=== PATIENT | female | born 1965 | race Caucasian/White ===

== ENCOUNTER → 2020-03-01 08:03 | Outpatient (CLI) | payer BC, SELFPAY ==
--- NOTE | 2020-03-01 | DI.ECHO.S_ITS ---
[place] [facility]---------+ [facility] +---------+ : : [address] : : : : [address] : : : : [id number] : : : : Phone: [phone]---------+ Echocardiogram Report + + :Name: ADRIANA LÓPEZ Study Date: 03/01/2020 Height: 68 in : :[facility] Weight: 295 lb : : Gender: Female BSA: 2.4 m2 : :: 1965 Age: 54 yrs BP: 138/76 mmHg: :Reason For Study: HYPERTENSION : :Ordering Physician: ROVERTO, : :DAWSON Performed By: Stacey De La Cruz : :Referring: DAWSON LAYNE : + + Interpretation Summary Technically difficult study. Borderline dilated left ventricle with ejection fraction 55-60%. Mildly dilated left atrium. Moderate aortic stenosis. The peak aortic velocity is 3.0. m/sec. Mildly enlarged ascending aorta. Mild mitral regurgitation. Mild tricuspid regurgitation. Procedure: A two-dimensional transthoracic echocardiogram with color flow and Doppler was performed. The patient had an echocardiogram, but there is no comparison study available. The study quality was technically difficult. The patient was in sinus rhythm with heart rates between 61-70 bpm during the exam. Left Ventricle: There is normal left ventricular wall thickness. The left ventricle is borderline dilated. The ejection fraction is estimated to be 55- 60%. There are no obvious focal wall motion abnormalities noted but poor endocardial definition reduces the sensitivity for the detection of such. Diastolic parameters suggest probable normal left ventricular diastolic function and normal filling pressures. Right Ventricle: The right ventricle is normal in size and function. Atria: The left atrium is mildly dilated. Right atrial size is normal. There is no Doppler evidence for an interatrial shunt. Mitral Valve: The mitral valve leaflets appear mildly thickened, but open well. There is mild mitral regurgitation. Aortic Valve: The aortic valve is mildly calcified. There is moderate aortic stenosis. The peak aortic velocity is 3.0. m/sec. The aortic valve mean gradient is 21 mmHg. The calculated aortic valve area is 1.0 cm2. No aortic regurgitation is present. Tricuspid Valve: The tricuspid valve leaflets are thin and pliable. There is mild tricuspid regurgitation. Pulmonary artery pressures cannot be estimated because of the lack of a measurable TR jet velocity but the IVC suggests a CVP of around 3 mmHg. Pulmonic Valve: The pulmonic valve leaflets are thin and pliable; valve motion is normal. There is no pulmonic valvular regurgitation. Great Vessels: The aortic root is normal size. The ascending aorta is mildly enlarged. The IVC is of normal diameter and collapses greater than 50% with a sniff. This suggests a low right atrial pressure of 3 mm Hg. Pericardium/ Pleura There is no pericardial effusion. There is no pleural effusion. MMode/2D Measurements & Calculations LVIDd: 5.9 cm LVOT diam: 2.0 cm LVIDs: 3.9 cm Ao root diam: 2.8 cm FS: 34.4 % asc Aorta Diam: 3.4 cm EPSS: 1.3 cm Ao Arch Diam (Prox Trans): 2.2 cm IVSd: 0.87 cm LVPWd: 0.97 cm LV galvin. diameter/BSA (cm/m^2): 2.5 LV sys. diameter/BSA (cm/m^2): 1.6 LA A2 area: 23.6 cm2 RA long axis: 5.5 cm LA A4 area: 27.1 cm2 RA area: 20.8 cm2 LA length (vol): 5.8 cm RA vol: 66.9 ml LA vol: 94.0 ml RA : 27.7 ml/m2 LA vol index: 39.0 ml/m2 IVC diam: 2.0 cm RVD1 (basal): 3.9 cm TAPSE: 2.1 cm Doppler Measurements & Calculations Ao V2 max: 297.5 cm/sec LVOT Max Bar: 97.0 cm/sec Ao V2 mean: 215.8 cm/sec LV V1 max P.8 mmHg Ao max P.4 mmHg LV V1 VTI: 23.7 cm Ao mean P.8 mmHg ZIYAD(I,D): 1.0 cm2 Ao V2 VTI: 70.9 cm ZIYAD(V,D): 1.0 cm2 sev ratio: 0.33 ZIYAD indexed to BSA (cm^2/m^2): 0.43 MV E max bar: 113.1 cm/sec PA V2 max: 77.9 cm/sec MV A max bar: 74.1 cm/sec PA V2 mean: 52.3 cm/sec MV E/A: 1.5 PA mean P.3 mmHg Med Peak E' Bar: 6.9 cm/sec PA pr(Accel): 44.7 mmHg E/E' med: 16.5 Lat Peak E' Bar: 10.0 cm/sec E/E' lat: 11.4 E/e' average: 13.9 MV dec time: 0.20 sec MVA(VTI): 2.1 cm2 MV V2 mean: 69.5 cm/sec SV(LVOT): 72.8 ml MV mean P.3 mmHg MV V2 VTI: 34.4 cm Electronically signed by: Roberto Carlos Linares on Reading Physician:03/01/2020 11:14 AM
== END ==
PROVIDERS: Family Provider Family Medicine; PCP Family Medicine; Referring Provider Family Medicine; Visit Provider Family Medicine
DX: I08.3 Combined rheumatic disorders of mitral, aortic and tricuspid valves (principal); I77.89 Other specified disorders of arteries and arterioles; I10 Essential (primary) hypertension
CPT/HCPCS: 93306

== ENCOUNTER → 2021-03-10 09:17 | Outpatient (CLI) | payer BC, SELFPAY ==
--- NOTE | 2021-03-10 09:19 | DI.ECHO.S_ITS ---
[place] [facility]---------+ [facility] +---------+ : : [address] : : : : [address] [address] : : : : [id number] : : : : Phone: [phone]---------+ Echocardiogram Report + + :Name: ADRIANA LÓPEZ Study Date: 03/10/2021 Height: 68.5 in: :[facility] ReadingLocation: Weight: 295 lb : : Gender: Female BSA: 2.4 m2 : :: 1965 Age: 55 yrs BP: 150/68 mmHg: :Reason For Study: AORTIC STENOSIS : :Ordering Physician: ROVERTO, : :DAWSON Performed By: Stacey De La Cruz : :Referring: DAWSON LAYNE : + + Interpretation Summary The left ventricle is borderline dilated. Left ventricular systolic function appears normal without focal wall motion abnormalities. The ejection fraction is estimated to be 55-60%. The right ventricle is normal in size and function. Pulmonary artery pressures cannot be estimated because of the lack of a measurable TR jet velocity. The left atrium is mildly dilated. Right atrial size is normal. There is moderate aortic stenosis. The peak aortic velocity is 3.1 m/sec. No significant change since prior study. There is no other significant valvular heart disease. The aortic root is not well visualized but is probably normal size. Procedure: A two-dimensional transthoracic echocardiogram with color flow and Doppler was performed. Comparison is made with the echocardiogram of 03/01/2020. The study quality was technically difficult. A contrast injection of Definity was performed to improve assessment of LV function. The patient was in sinus bradycardia with heart rates between 60-65 bpm during the exam. Left Ventricle: The left ventricle is borderline dilated. There is normal left ventricular wall thickness. Left ventricular systolic function appears normal without focal wall motion abnormalities. The ejection fraction is estimated to be 55-60%. Diastolic function could not be accurately assessed due to contradictory data. Right Ventricle: The right ventricle is normal in size and function. Atria: The left atrium is mildly dilated. Right atrial size is normal. There is no Doppler evidence for an interatrial shunt. Mitral Valve: The mitral valve leaflets appear mildly thickened, but open well. There is trace mitral regurgitation. Aortic Valve: The aortic valve is moderately calcified. There is moderately reduced leaflet mobility. There is moderate aortic stenosis. The peak aortic velocity is 3.1 m/sec. The aortic valve mean gradient is 22 mmHg. No aortic regurgitation is present. Tricuspid Valve: The tricuspid valve is not well visualized, but is grossly normal. No tricuspid regurgitation. Pulmonary artery pressures cannot be estimated because of the lack of a measurable TR jet velocity. Pulmonic Valve: The pulmonic valve is not well visualized. There is no pulmonic valvular regurgitation. There is no other significant valvular heart disease. Great Vessels: The aortic root is not well visualized but is probably normal size. The dimensions of the ascending aorta are normal. The IVC is of normal diameter and collapses greater than 50% with a sniff. This suggests a low right atrial pressure of 3 mm Hg. Pericardium/ Pleura There is no pericardial effusion. There is no pleural effusion. MMode/2D Measurements & Calculations LVIDd: 6.0 cm LVOT diam: 2.0 cm LVIDs: 3.9 cm asc Aorta Diam: 3.2 cm FS: 34.1 % Ao Arch Diam (Prox Trans): 2.6 cm IVSd: 0.89 cm LVPWd: 0.91 cm LV galvin. diameter/BSA (cm/m^2): 2.5 LV sys. diameter/BSA (cm/m^2): 1.6 LA A2 area: 27.6 cm2 RA long axis: 4.7 cm LA A4 area: 21.0 cm2 RA area: 15.7 cm2 LA length (vol): 5.9 cm RA vol: 44.5 ml LA vol: 83.2 ml RA : 18.4 ml/m2 LA vol index: 34.3 ml/m2 IVC diam: 2.0 cm RVD1 (basal): 3.9 cm TAPSE: 2.3 cm Doppler Measurements & Calculations Ao V2 max: 311.3 cm/sec LVOT Max Bar: 124.4 cm/sec Ao V2 mean: 217.9 cm/sec LV V1 max P.2 mmHg Ao max P.5 mmHg LV V1 VTI: 29.1 cm Ao mean P.0 mmHg ZIYAD(I,D): 1.2 cm2 Ao V2 VTI: 73.6 cm ZIYAD(V,D): 1.2 cm2 sev ratio: 0.40 ZIYAD indexed to BSA (cm^2/m^2): 0.51 MV E max bar: 113.9 cm/sec PA V2 max: 120.7 cm/sec MV A max bar: 94.1 cm/sec PA V2 mean: 84.3 cm/sec MV E/A: 1.2 PA mean P.2 mmHg Med Peak E' Bar: 5.6 cm/sec PA pr(Accel): 32.8 mmHg E/E' med: 20.3 Lat Peak E' Bar: 10.8 cm/sec E/E' lat: 10.6 E/e' average: 15.5 MV dec time: 0.21 sec SV(LVOT): 90.9 ml Reading Physician:06:18 PM
== END ==
PROVIDERS: Family Provider Family Medicine; PCP Family Medicine; Referring Provider Family Medicine; Visit Provider Family Medicine
DX: I35.0 Nonrheumatic aortic (valve) stenosis (principal)
CPT/HCPCS: 93306; Q9957

== ENCOUNTER → 2021-08-10 11:00 | Outpatient (CLI) | payer BC, SELFPAY ==
--- NOTE | 2021-08-10 11:02 | DIET.CONS ---
Dietary Consultation Note Assessment: 56y menopausal F attending telehealth visit for help with preDM, HLD, morbid obesity. Video visit transitioned into phone consult due to connection issues. A1c 6.2- pt states lower than it has been, pts mother was DM2 from mid-50s, not sibling or father. lives with friend (Natacha) who is DM2 and does the cooking, they get out and hike but not losing weight. Pt friend dx since Feb 2021, both have been working on healthy habits since then, pt somewhat disappointed she has not lost weight. Ht: 5'9 Wt: 295# BMI: 43.6 Usual Day: Works M-F wakes 6am has 7 cats, feeds them and does litter box B: 7:30am- 1/3 dry oats c 1/2 c cottage cheese and fruit (3/4c frozen berries) unsweet serbian yogurt c Truvia and milk c 3/4 c frozen fruit c handful walnuts/pecan/pumpkin seeds Likes flavored water and Crystal Light Drinks home made coffee c SF creamer and iced sometimes friend at work brings in baked goods but usually no snack before lunch L: green salad c salmon, meat, veggies, regular ranch, feta cheese or half egg salad c chips, thin bread toast c apple and nuts afternoon snack: crackers and cheese to nuts, apples c cheese, rice cakes c nut butter D (630pm): baked meat (steak of fridays only but usually chicken, pork) and salads c vegetables, sometimes potato but not usually other carbs. decaf coffee c whip cream and creamer sleeping in bed 9:30pm often goes for hike or beach stroll on Saturdays doesn't go out to eat much barrier to good nutrition and activity is sitting at a desk Nutrition Diagnosis: altered nutrition related laboratory values (A1c, BMI, TC) r/t undesirable food choices and physical inactivity aeb A1c 6.2, BMI 43.6, TC 202, pt reports some cardiovascular activity through the week but no intentional strength training, inadequate intake dietary fiber and protein. Interventions: 1. To support weight loss and healthy metabolism, recc pt participate in strength training 20 min twice weekly, rec isela. 2. To support weight loss, healthy cholesterol levels, and BG balance, recc 25-30g fiber daily. Pt will track her diet for 3 days to estimate fiber intake and increase to goal. 3. To support weight loss, satiety, pt will aim for 100g protein daily. Pt will track protein 3 days and work on reaching goal. EER: 100g PRO, 30g Fiber Monitoring/Evaluations: telehealth f/u 4w Electronically Signed by: Katherine Hendricks 08/10/21 11:02 Clinical Dietitian [address] [address]
== END ==
PROVIDERS: Family Provider Family Medicine; PCP Family Medicine; Referring Provider Family Medicine; Visit Provider Family Medicine
DX: R73.03 Prediabetes (principal); E78.5 Hyperlipidemia, unspecified; E66.01 Morbid (severe) obesity due to excess calories; Z68.41 Body mass index [BMI] 40.0-44.9, adult; Z71.3 Dietary counseling and surveillance; Z78.0 Asymptomatic menopausal state
CPT/HCPCS: 97802

== ENCOUNTER → 2021-09-07 11:59 | Outpatient (CLI) | payer BC, SELFPAY ==
--- NOTE | 2021-09-07 11:07 | DIET.PN1 ---
Dietary Progress Note 56y F attending RD f/u via virtual video call for help with weight management and preDM. Pt in work office, RD in hospital office, pt agrees to virtual visit platform. Pt feels changes are going well so far. She has not lost weight yet but is tracking her foods on [employer] and is noticing her diet is low in protein and high in carbs. Pt has 45g in oatmeal higher carb meal and noticed her rice cakes were basically empty calories and high carb. Pt is reducing the rice cakes, willing to try veggie crisps with more fiber. Pt finds planning ahead with meal planning makes her more successful. She has been purchasing precut veggies and throwing them in work bag c [place]. Pt having trouble adding physical activity during the workweek. She has long days and can't seem to carve out time before or after work. Discussed bringing hand weights or band to work for 10min workout using [place] calendar as reminder. Pt has desk bike at home, never thought to bring to work. Will bring tomorrow and start pedaling 10 minutes per day with goal of working up from there. Discussed importance of 10min chunks of exercise for preDM. Pt getting bored c salads, asking about frozen veggies as she does not like canned. Provided Mediterranean meal plan template with meal and snack ideas within carb limits appropriate for pt and roomate to shake planning up a bit. Pt will work on these modifications and virtual f/u scheduled out 4w. Electronically Signed by: Katherine Hendricks 09/07/21 11:07 Clinical Dietitian [address] [address]
== END ==
PROVIDERS: Family Provider Family Medicine; PCP Family Medicine; Referring Provider Family Medicine; Visit Provider Family Medicine
DX: R73.03 Prediabetes (principal); Z71.3 Dietary counseling and surveillance
CPT/HCPCS: 97803

== ENCOUNTER → 2021-10-05 11:38 | Outpatient (CLI) | payer BC, SELFPAY ==
--- NOTE | 2021-10-05 11:39 | DIET.OUTPTC ---
Dietary Outpatient Consultation Note Consultation Date: 10/05/2021 Pt in work office, RD in hospital office, pt agrees to telehealth visit using [email or web address] application. Pt reports she has lost 3# in the past month. Starting to track food in food tracking concetta and surprised how many calories she eats in snacks especially peanut butter. B: yogurt c nuts, oatmeal c fruit and cottage cheese, carrera and eggs occasionally L: salad c veggies and meat, sometimes canned tuna D: if eating a pot pie- watches carbs and calories rest of day, usually protein and veggies Has sweet tooth- cookies, doughnuts Loves fresh fruits Pt feeling tired at work Wearing fitbit: workday averages: [id number] steps with walk 10k steps no walk. Interventions: 1. 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 Discussed stevia sweetened chocolate chips and strategies for making limited low sugar and high fiber treats to keep in deep freeze (stevia, monkfruit, blended oats, energy bites). Strategies to limit treats at work in breakroom. 2. Discussed pts current dietary habits supporting stable energy levels. Recc pt get up and walk around each hour to break up sedentary time, have labs done to check for anemia at next PCP visit, and make appt c her sleep doc for check in. f/u scheduled in 4w to continue progress and problem solve barriers. Electronically Signed by: Katherine Hendricks 10/05/21 11:39 Clinical Dietitian [address] [address]
== END ==
PROVIDERS: Family Provider Family Medicine; PCP Family Medicine; Referring Provider Family Medicine; Visit Provider Family Medicine
DX: Z71.3 Dietary counseling and surveillance (principal)
CPT/HCPCS: 97803

== ENCOUNTER → 2021-11-23 13:33 | Outpatient (CLI) | payer OTHER, SELFPAY ==
--- NOTE | 2021-11-23 13:35 | DIET.OUTPTC ---
Dietary Outpatient Consultation Note Consultation Date: 11/23/2021 Pt in work office, RD in hospital office, pt agrees to telehealth visit using [employer] application. Pt attending telehealth f/u for help with preDM, HLD, and morbid obesity (BMI 42). Pt weight steady, fluctuates 4-5# at a time but same weight x5y. Pt a bit frustrated she has not lost weight but also feels she has made great improvements to overall eating composition and timing. Pt noticing when she does not pack lunch, she overeats snacks which may be derailing her weight loss. [place] kcal goal [place] [id number] depending on exercise. Pt will follow 1600 on work days and 2200 on weekends when she does the most of her physical activity. Pt will increase physical activity to spur change from her currrent weight set point. f/u in 5w to continue monitoring progress and providing supportive care. Electronically Signed by: Katherine Hendricks 11/23/21 13:35 Clinical Dietitian [address] [address]
[2021-11-23 13:50] VITALS: BMI 43.5
== END ==
PROVIDERS: Family Provider Family Medicine; PCP Family Medicine; Referring Provider Family Medicine; Visit Provider Family Medicine
DX: E66.01 Morbid (severe) obesity due to excess calories (principal); E78.5 Hyperlipidemia, unspecified; R73.03 Prediabetes
CPT/HCPCS: 97803

== ENCOUNTER → 2022-02-23 15:57 | Outpatient (CLI) | payer OTHER, SELFPAY ==
--- NOTE | 2022-02-23 16:05 | DI.ECHO.S_ITS ---
[place] [facility]---------+ Hospital +---------+ : : [address] : [address] : [address] : : : : [phone] : : : : Phone: [phone] +---------+ Echocardiogram Report + + :Name: ADRIANA LÓPEZ Study Date: 02/23/2022 Height: 68 in : :[facility] ReadingLocation: Weight: 295 lb : : Gender: Female BSA: 2.4 m2 : :: 1965 Age: 56 yrs BP: 134/81 mmHg: :Reason For Study: Aortic valve stenosis : :Ordering Physician: ROVERTO, : :DAWSON Performed By: Linden Hi : :Referring: DAWSON LAYNE : + + Interpretation Summary The ejection fraction is estimated to be 60-65%. The right ventricle is normal in size and function. Pulmonary artery pressures cannot be estimated because of the lack of a measurable TR jet velocity. There is moderate aortic stenosis. No significant change from prior study in 02/2021 Procedure: A two-dimensional transthoracic echocardiogram with color flow and Doppler was performed. The study quality was technically difficult. Comparison is made with the echocardiogram of 03/10/2021. Left Ventricle: The left ventricle is normal in size and wall thickness. Left ventricular systolic function is normal. The ejection fraction is estimated to be 60-65%. There are no focal wall motion abnormalities. Grade I diastolic dysfunction. Right Ventricle: The right ventricle is normal in size and function. Atria: Both atria are normal in size. The interatrial septum grossly appears intact with no obvious evidence for an atrial septal defect. Mitral Valve: The mitral valve is normal in structure and function. There is no mitral regurgitation noted. Aortic Valve: The aortic valve is moderately calcified. There is moderate aortic stenosis. The aortic valve mean gradient is 23 mmHg. No aortic regurgitation is present. Tricuspid Valve: The tricuspid valve is normal in structure and function. There is a trace or physiologic amount of tricuspid regurgitation. Pulmonary artery pressures cannot be estimated because of the lack of a measurable TR jet velocity. Pulmonic Valve: The pulmonic valve is normal in structure and function. There is no pulmonic valvular regurgitation. Great Vessels: The aortic root is normal size. The dimensions of the ascending aorta are normal. The IVC is of normal diameter and collapses greater than 50% with a sniff. This suggests a low right atrial pressure of 3 mm Hg. Pericardium/ Pleura There is no pericardial effusion. There is no pleural effusion. MMode/2D Measurements & Calculations LVIDd: 5.4 cm LVOT diam: 2.1 cm LVIDs: 3.8 cm Ao root diam: 2.8 cm FS: 29.6 % asc Aorta Diam: 3.1 cm IVSd: 1.1 cm LVPWd: 1.1 cm LV galvin. diameter/BSA (cm/m^2): 2.2 LV sys. diameter/BSA (cm/m^2): 1.6 LA dimension: 3.4 cm RA long axis: 4.8 cm LA A2 area: 19.6 cm2 RA area: 13.7 cm2 LA A4 area: 20.5 cm2 RA vol: 33.3 ml LA length (vol): 5.0 cm RA : 13.8 ml/m2 LA vol: 68.1 ml LA vol index: 28.3 ml/m2 RVD1 (basal): 3.3 cm TAPSE_phl: 3.0 cm Doppler Measurements & Calculations Ao V2 max: 316.0 cm/sec LVOT Max Bar: 129.0 cm/sec Ao V2 mean: 230.9 cm/sec LV V1 max P.7 mmHg Ao max P.9 mmHg LV V1 VTI: 29.1 cm Ao mean P.2 mmHg ZIYAD(I,D): 1.4 cm2 Ao V2 VTI: 72.0 cm ZIYAD(V,D): 1.4 cm2 sev ratio: 0.40 ZIYAD indexed to BSA (cm^2/m^2): 0.58 MV E max bar: 127.0 cm/sec SV(LVOT): 100.6 ml MV A max bar: 78.4 cm/sec MV E/A: 1.6 Med Peak E' Bar: 5.7 cm/sec E/E' med: 22.2 Lat Peak E' Bar: 12.4 cm/sec E/E' lat: 10.2 E/e' average: 16.2 MV dec time: 0.24 sec AV VR_phl: 0.42 MV P1/2t-pr_phl: 71.0 msec ZIYADLENORE)/BSA_phl: 0.59 Reading Physician:RA
== END ==
PROVIDERS: Family Provider Family Medicine; PCP Family Medicine; Referring Provider Family Medicine; Visit Provider Family Medicine
DX: I51.7 Cardiomegaly (principal); I35.0 Nonrheumatic aortic (valve) stenosis
CPT/HCPCS: 93306

== ENCOUNTER → 2022-03-21 09:24 | Outpatient (CLI) | payer OTHER, SELFPAY ==
[2022-03-21 11:24] LABS: COVID19 -Nasal RAPID Negative (Negative)
== END ==
PROVIDERS: Family Provider Family Medicine; PCP Family Medicine; Visit Provider Surgery
DX: Z01.812 Encounter for preprocedural laboratory examination (principal); Z20.822 Contact with and (suspected) exposure to COVID-19
CPT/HCPCS: 87635; C9803

== ENCOUNTER 2022-03-22 08:58 | Day surgery (SDC) | payer OTHER, SELFPAY ==
[2022-03-22 09:11] VITALS: BP 149/79; PULSE 65; RESP 15; TEMP 36.4; O2SAT 96; BMI 44.8
--- NOTE | 2022-03-22 09:21 | PM.HP.1 ---
History of Present Illness History of Present Illness Date Patient Seen: 03/22/22 Chief complaint: Colonoscopy Narrative: History of colon polyps Meds Home Medications and Allergies Home Medications Medication Instructions Recorded Confirmed Type ASPIRIN (Aspirin Low Dose) 81 mg PO QDAY ##0 07/21/09 History CHOLECALCIFEROL (VITAMIN D3) 1,000 iu PO QDAY ##0 07/21/09 History (Vitamin D3) Ferrous Sulfate (Feosol) 50 mg PO QDAY ##0 07/21/09 History IBUPROFEN (Motrin / Advil) PRN ##0 07/21/09 History Metoprolol Tartrate (Lopressor) 50 mg PO HS ##0 07/21/09 History [CALCIUM/MAG] 250 mg PO BID ##0 07/21/09 History [EVENING PRIMROSE] 500 mg PO BID ##0 07/21/09 History [FLAXSEED OIL] PO TID ##0 07/21/09 History [FLUTACASONE] 2 spray intranasal QDAY ##0 07/21/09 History [GLUCOSAMINE SULF] 750 mg PO BID ##0 07/21/09 History [METHIMAZOLE] 15 mg PO BID ##0 07/21/09 History acetaminophen 325 mg tablet PRN ##0 07/21/09 History Allergies Allergy/AdvReac Type Severity Reaction Status Date / Time amoxicillin [AMOXICILLIN] AdvReac Unknown DIARRHEA Unverified 08/01/17 11:53 INGREDIENT: NKA - NO KNOWN Allergy Unknown Uncoded 08/01/17 11:53 ALLERGIES Exam Narrative Exam Narrative: Oropharynx free of lesions Chest clear to auscultation percussion Cardiac exam reveals no S3 or murmur Assessment & Plan Assessment & Plan narrative: History of colon polyps need for follow-up colonoscopy. Risks, benefits, alternatives have been explained. Time Spent With Patient Critical Care time: I spent a total of [] minutes of critical care time on this patient's care today; this time is exclusive of procedural time.
--- NOTE | 2022-03-22 09:22 | PM.OP.COLON ---
Operative Date/Time/Diagnoses Date of procedure: 03/22/22 Pre-op diagnosis: See indication and findings Procedure & Clinicians Study performed: Colonoscopy Indications: History of colon polyps Surgeon: Jovan El Procedure Notes Procedure in detail: After informed consent was obtained the patient was placed in left lateral decubitus position. The video colonoscope was introduced to the rectum slowly advanced cecum. On slow withdrawal mucosa was carefully examined. Preparation was was poor with non-transparent liquid stool and some solid stool present. The scope was removed. The patient tolerated procedure well. Blood loss none Complications none Sedation mac Findings 1. Poor colonoscopy prep with solid and liquid components. Procedure aborted Patient will need to have a extra dose or 2 day prep prior to her next colonoscopy attempt
[2022-03-22] MEDS: SODIUM CHLORIDE 0.9% 1,000 ML 84 ML IV (09:27)
[2022-03-22 09:48] VITALS: BP 98/52; PULSE 63; RESP 12; TEMP 36.6; O2SAT 92
[2022-03-22 09:52] VITALS: BP 98/57; PULSE 62; RESP 11; O2SAT 94
[2022-03-22 09:58] VITALS: BP 126/76; PULSE 66; RESP 15; O2SAT 98
[2022-03-22 10:02] VITALS: BP 124/74; PULSE 65; RESP 15; TEMP 36.6; O2SAT 98
[2022-03-22 10:15] VITALS: BP 117/71; PULSE 63; RESP 16; TEMP 36.1; O2SAT 95
== END 2022-03-22 10:16 | disposition home or self-care (01) ==
PROVIDERS: Family Provider Family Medicine; PCP Family Medicine; Referring Provider Internal Medicine Gastroenterology; Visit Provider Internal Medicine Gastroenterology
PROC: 0DJD8ZZ Inspection of Lower Intestinal Tract, Via Natural or Artificial Opening Endoscopic (ICD-10-PCS; CPT 45378; principal; 2022-03-22 10:00)
DX: Z12.11 Encounter for screening for malignant neoplasm of colon (principal); Z86.010 Personal history of colon polyps; Z53.09 Procedure and treatment not carried out because of other contraindication
CPT/HCPCS: 45378; J2704

== ENCOUNTER → 2023-02-22 10:19 | Outpatient (CLI) | payer OTHER, SELFPAY ==
--- NOTE | 2023-02-22 10:20 | DI.US.S_ITS ---
PROCEDURE: US PELVIC COMPLETE INDICATIONS: POSTMENOPAUSAL BLEEDING TECHNIQUE: Real-time scanning was performed of the pelvic organs, with image documentation. Additional endovaginal scanning was necessary due to incomplete visualization of the adnexal and endometrial structures by transabdominal scanning. COMPARISON: None. FINDINGS: Uterus: Uterus is anteverted and normal in size at 10.7 x 4.8 x 5.7 cm. The myometrium is homogeneous. The endometrium measures 10.4 mm combined thickness. Ovaries: The right ovary shows appropriate echotexture, but measures 3.7 x 1.9 x 4.4 cm for a calculated volume of 16.7 cm. Left ovary not visualized. Other: No pathologic free abdominal or pelvic fluid. IMPRESSION: Endometrial thickening. Advise endometrial biopsy. Prominent right ovary. Nonvisualized left ovary Approved by: Karl Naidu M.D. on 02/22/2023 at 17:07
== END ==
PROVIDERS: Family Provider Family Medicine; PCP Family Medicine; Referring Provider Family Medicine; Visit Provider Family Medicine
DX: N95.0 Postmenopausal bleeding (principal); R93.89 Abnormal findings on diagnostic imaging of other specified body structures
CPT/HCPCS: 76830; 76856

== ENCOUNTER → 2023-12-18 13:52 | Outpatient (CLI) | payer OTHER, SELFPAY ==
--- NOTE | 2023-12-18 13:53 | DI.NM.S_ITS ---
PROCEDURE: NM KENDRA PERF SPECT REST & STR Rest and exercise myocardial perfusion SPECT with gated imaging and ejection fraction RADIOPHARMACEUTICAL: 26.2 mCi Tc-99m sestamibi IV at rest and 25.3 mCi Tc-99m sestamibi IV at peak exercise. A two day-protocol was performed. INDICATIONS: CHEST PAIN,OTHER FORMS OF CULLEN TECHNIQUE: Radiopharmaceutical was injected at peak stress test, and also at rest. SPECT images were obtained. SPECT myocardial perfusion images were displayed in short axis, horizontal long axis, and vertical long axis views. Gated images were reviewed using micecloud software. COMPARISON: None. CARDIAC STRESS: A standard [place] treadmill exercise tolerance test was performed by the patient under the supervision of an attending staff. The patient exercised for 6 minutes and 0 seconds; functional aerobic impairment (CARLENE) is +14%. Hemodynamic data: There is normal blood pressure and heart rate response to exercise stress. Patient achieved 90% of maximum predicted heart rate at peak exercise. Symptoms: Patient denied chest pain during exercise. EKG: No diagnostic EKG changes of ischemia; rare PVCs present. FINDINGS: Raw data: There is good myocardial labeling by radiotracer. No significant motion artifacts. [id number] ratio is 0.3 (normal is less than 0.38 for sestamibi tracer, and less than 0.50 for thallium tracer). Left ventricle function: Gated images demonstrate normal left ventricle wall thickening. No segmental wall motion abnormality. No transient ischemic dilation; TID is 0.71 (normal less than 1.3). The left ventricle resting end-diastolic volume is 136mL. Left ventricle stress ejection fraction is 75%; normal values are above 45%. Myocardial perfusion: Mildly intense fixed anterior wall defect that resolves with prone imaging, suggesting artifact. No ischemia and no infarction present. IMPRESSION: Low risk, normal treadmill nuclear stress test from inducible ischemia standpoint. 1) Mildly intense fixed anterior wall defect that resolves with prone imaging, suggesting artifact. No ischemia and no infarction present. 2) Normal left ventricular size, wall motion, and systolic function (EF post stress 75%). 3) No diagnostic ST changes during exercise or recovery. 4) No angina during the study. 5) Mildly reduced exercise tolerance (7.0METs, CARLENE +14%). Target heart rate reached. Appropriate BP response to exercise. 6) No prior nuclear stress test available for comparison. Dictated by: Herb Sy MD on 12/19/2023 at 14:20 Approved by: Herb Sy MD on 12/19/2023 at 14:23
== END ==
PROVIDERS: Family Provider Family Medicine; PCP Family Medicine; Referring Provider Family Medicine; Visit Provider Family Medicine
DX: R07.9 Chest pain, unspecified (principal); R06.09 Other forms of dyspnea
CPT/HCPCS: 78452; 93017; A9502

== ENCOUNTER → 2024-03-19 12:28 | Outpatient (CLI) | payer OTHER, SELFPAY ==
--- NOTE | 2024-03-19 12:29 | DI.US.S_ITS ---
PROCEDURE: US CAROTID DOPPLER BI INDICATIONS: AORTIC VALVE STENOSIS / BRUIT OF LEFT CAROTID ART TECHNIQUE: Color and pulse Doppler interrogation was performed of both carotid systems, with image documentation and velocity measurements. COMPARISON: None. FINDINGS: Stenosis calculations are based on SRU (Society of Radiologists in Ultrasound) criteria. The flow velocities and the arterial waveforms are normal within both carotid arterial systems. Minimal atherosclerotic plaque is seen on both sides. The estimated degree of internal carotid artery stenosis is less than 50%. Antegrade flow is confirmed within both vertebral arteries. IMPRESSION: No hemodynamically significant stenosis is seen. Dictated by: Magdaleno Saleh M.D. on 03/19/2024 at 13:42 Approved by: Magdaleno Saleh M.D. on 03/19/2024 at 13:43
--- NOTE | 2024-03-19 12:52 | DI.ECHO.S_ITS ---
[place] +---------+ Hospital : : [address] : [address] [address] : : [id number] : : Phone: [phone] Echocardiogram Report + + :Name: ADRIANA LÓPEZ Study Date: 03/19/2024 Height: 69 in : :Hospital ReadingLocation: Weight: 290 lb : : Gender: Female BSA: 2.4 m2 : :: 1965 Age: 59 yrs BP: 119/79 mmHg: :Reason For Study: AORTIC VALVE STENOSIS : :Ordering Physician: RAMON, : :LAURE Beltran Performed By: Stacey De La Cruz : :Referring: LAURE FUENTES : + + Interpretation Summary The left ventricle is mild-moderately dilated. The ejection fraction is estimated to be 55-60%. Diastolic parameters suggest probable normal left ventricular diastolic function and normal filling pressures. The right ventricle is normal in size and function. There is mild mitral regurgitation. There is moderate aortic stenosis. Pulmonary artery pressures cannot be estimated because of the lack of a measurable TR jet velocity but the IVC suggests a CVP of around 3 mmHg. Compared to the prior study dated 02/23/2022, the left ventricle now appears dilated and less dynamic and the aortic valve gradient has increased. Procedure: A two-dimensional transthoracic echocardiogram with color flow and Doppler was performed. The study quality was technically adequate. Comparison is made with the echocardiogram of 02/23/2022. The patient was in sinus rhythm with heart rates between 61-70 bpm during the exam. Left Ventricle: Left ventricular wall thickness is borderline increased. The left ventricle is mild-moderately dilated. The ejection fraction is estimated to be 55-60%. Diastolic parameters suggest probable normal left ventricular diastolic function and normal filling pressures. Right Ventricle: The right ventricle is normal in size and function. Atria: The left atrial size is normal. Right atrial size is normal. There is no Doppler evidence for an interatrial shunt. Mitral Valve: The mitral valve is normal. There is mild mitral regurgitation. Aortic Valve: The aortic valve is trileaflet. The aortic valve is moderately calcified. There is moderately reduced leaflet mobility. There is moderate aortic stenosis. The peak aortic velocity is 3.9 m/sec. The aortic valve mean gradient is 38 mmHg. The calculated aortic valve area is 1.1 cm2. Strokevolume index is 39 mL/m??. There is trace aortic regurgitation. Tricuspid Valve: The tricuspid valve is normal in structure and function. There is trace tricuspid regurgitation. Pulmonary artery pressures cannot be estimated because of the lack of a measurable TR jet velocity but the IVC suggests a CVP of around 3 mmHg. Pulmonic Valve: The pulmonic valve leaflets are thin and pliable; valve motion is normal. There is no pulmonic valvular regurgitation. Great Vessels: The aortic root is normal size. The dimensions of the ascending aorta are normal. The IVC is of normal diameter and collapses greater than 50% with a sniff. This suggests a low right atrial pressure of 3 mm Hg. Pericardium/ Pleura There is no pericardial effusion. There is no pleural effusion. MMode/2D Measurements & Calculations LVIDd: 5.7 cm LVOT diam: 2.0 cm LVIDs: 3.8 cm Ao root diam: 2.8 cm FS: 33.2 % asc Aorta Diam: 3.0 cm EPSS: 0.84 cm Ao Arch Diam (Prox Trans): 2.5 cm IVSd: 0.85 cm LVPWd: 1.1 cm LV galvin. diameter/BSA (cm/m^2): 2.4 LV sys. diameter/BSA (cm/m^2): 1.6 LA A2 area: 18.8 cm2 RA long axis: 4.1 cm LA A4 area: 16.3 cm2 RA area: 15.0 cm2 LA length (vol): 4.7 cm RA vol: 46.5 ml LA vol: 55.1 ml RA : 19.2 ml/m2 LA vol index: 22.8 ml/m2 IVC diam: 1.2 cm RVD1 (basal): 4.0 cm TAPSE: 2.1 cm Doppler Measurements & Calculations Ao V2 max: 386.5 cm/sec LVOT Max Bar: 129.1 cm/sec Ao V2 mean: 271.0 cm/sec LV V1 max P.7 mmHg Ao max P.2 mmHg LV V1 VTI: 30.1 cm Ao mean P.7 mmHg ZIYAD(I,D): 1.1 cm2 Ao V2 VTI: 85.4 cm ZIYAD(V,D): 1.1 cm2 sev ratio: 0.35 ZIYAD indexed to BSA (cm^2/m^2): 0.46 MV E max bar: 91.6 cm/sec TR max bar: 211.8 cm/sec MV A max bar: 67.6 cm/sec TR max P.9 mmHg MV E/A: 1.4 PA V2 max: 123.2 cm/sec Med Peak E' Bar: 7.3 cm/sec PA V2 mean: 88.2 cm/sec E/E' med: 12.5 PA mean P.4 mmHg Lat Peak E' Bar: 10.5 cm/sec PA pr(Accel): 17.3 mmHg E/E' lat: 8.7 E/e' average: 10.6 MV dec time: 0.25 sec SV(LVOT): 95.5 ml Reading Physician:02:32 PM
== END ==
PROVIDERS: Family Provider Family Medicine; PCP Family Medicine; Referring Provider Internal Medicine Cardiovascular Disease; Visit Provider Internal Medicine Cardiovascular Disease
DX: R09.89 Other specified symptoms and signs involving the circulatory and respiratory systems (principal); I35.0 Nonrheumatic aortic (valve) stenosis
CPT/HCPCS: 93306; 93880

== ENCOUNTER → 2024-08-15 09:39 | Outpatient (CLI) | payer OTHER, SELFPAY ==
--- NOTE | 2024-08-15 09:41 | DI.RAD.S_ITS ---
PROCEDURE: XR KNEE LT 1TO2V INDICATIONS: KNEE PAIN TECHNIQUE: 2 views of the knee were acquired. COMPARISON: [facility], CR, XR KNEE RT 1TO2V, 08/15/2024, 9:38. FINDINGS: Bones: No fractures or dislocations. No suspicious bony lesions. Mild tricompartmental degenerative changes of the left knee. Soft tissues: No joint effusion. No suspicious soft tissue calcifications. IMPRESSION: No acute bony abnormality or significant effusion. Mild tricompartmental osteoarthrosis. Dictated by: Shayan Randolph M.D. on 08/15/2024 at 23:47 Approved by: Shayan Randolph M.D. on 08/15/2024 at 23:49
--- NOTE | 2024-08-15 09:41 | DI.RAD.S_ITS ---
PROCEDURE: XR KNEE RT 1TO2V INDICATIONS: KNEE PAIN TECHNIQUE: 2 views of the knee were acquired. COMPARISON: None. FINDINGS: Bones: No fractures or dislocations. No suspicious bony lesions. Mild tricompartmental osteoarthrosis. Soft tissues: No joint effusion. No suspicious soft tissue calcifications. IMPRESSION: No acute bony abnormality or significant effusion. Mild tricompartmental osteoarthrosis. Dictated by: Shayan Randolph M.D. on 08/15/2024 at 23:49 Approved by: Shayan Randolph M.D. on 08/15/2024 at 23:50
== END ==
PROVIDERS: Family Provider Family Medicine; PCP Family Medicine; Referring Provider Family Medicine; Visit Provider Family Medicine
DX: M17.0 Bilateral primary osteoarthritis of knee (principal); M25.561 Pain in right knee; M25.562 Pain in left knee
CPT/HCPCS: 73560

== ENCOUNTER → 2024-10-01 09:06 | Outpatient (CLI) | payer OTHER, SELFPAY ==
--- NOTE | 2024-10-01 09:08 | DI.ECHO.S_ITS ---
[place] +---------+ Hospital : : [address] : [address] [address] : : [id number] : : Phone: [phone] Echocardiogram Report + + :Name: ADRIANA LÓPEZ Study Date: 10/01/2024 Height: 68.5 in: :[facility] ReadingLocation: Weight: 290 lb : : Gender: Female BSA: 2.4 m2 : :: 1965 Age: 59 yrs BP: 134/76 mmHg: :Reason For Study: AORTIC VALVE STENOSIS : :Ordering Physician: RAMON, : :LAURE Beltran Performed By: Stacey De La Cruz : :Referring: LAURE FUENTES : + + Interpretation Summary The left ventricle is mildly dilated. The ejection fraction is estimated to be 60-65%. Diastolic parameters suggest probable normal left ventricular diastolic function and normal filling pressures. The right ventricle is mildly dilated. The right ventricular systolic function is normal. There is mild mitral regurgitation. There is severe aortic stenosis. There is mild aortic regurgitation. Pulmonary artery pressures cannot be estimated because of the lack of a measurable TR jet velocity but the IVC suggests a CVP of around 3 mmHg. Compared to the prior study 03/19/2024, the aortic valve gradient has increased. Procedure: A two-dimensional transthoracic echocardiogram with color flow and Doppler was performed. The study quality was technically difficult. Comparison is made with the echocardiogram of 03/19/2024. The patient was in sinus rhythm with heart rates between 57-65 bpm during the exam. Left Ventricle: The left ventricle is mildly dilated. The estimated left ventricular end diastolic volume is 129 ml. LV volume indexed to BSA of 21.16ml/m2. Left ventricular wall thickness is borderline increased. The ejection fraction is estimated to be 60-65%. Diastolic parameters suggest probable normal left ventricular diastolic function and normal filling pressures. Right Ventricle: The right ventricle is mildly dilated. The right ventricular systolic function is normal. Atria: The left atrial size is normal. Right atrial size is normal. There is no Doppler evidence for an interatrial shunt. Mitral Valve: The mitral valve leaflets appear to open well. There is mild mitral regurgitation. Aortic Valve: The aortic valve is trileaflet. The aortic valve is moderately calcified. There is moderate to severely reduced leaflet mobility. The peak aortic velocity is 4.1 m/sec. The aortic valve mean gradient is 38 mmHg. The calculated aortic valve area is 0.67 cm2. The dimensionless index is 0.20. There is severe aortic stenosis. There is mild aortic regurgitation. Tricuspid Valve: The tricuspid valve leaflets are thin and pliable. There is trace tricuspid regurgitation. Pulmonary artery pressures cannot be estimated because of the lack of a measurable TR jet velocity but the IVC suggests a CVP of around 3 mmHg. Pulmonic Valve: The pulmonic valve is not well seen, but is grossly normal. There is no pulmonic valvular regurgitation. Great Vessels: The aortic root is normal size. The dimensions of the ascending aorta are normal. The IVC is of normal diameter and collapses greater than 50% with a sniff. This suggests a low right atrial pressure of 3 mm Hg. Pericardium/ Pleura There is no pericardial effusion. There is no pleural effusion. MMode/2D Measurements & Calculations LVIDd: 5.6 cm LVOT diam: 2.0 cm LVIDs: 3.6 cm Ao root diam: 2.9 cm FS: 34.6 % asc Aorta Diam: 3.3 cm EPSS: 0.75 cm Ao Arch Diam (Prox Trans): 2.6 cm IVSd: 0.97 cm LVPWd: 1.1 cm LV galvin. diameter/BSA (cm/m^2): 2.3 LV sys. diameter/BSA (cm/m^2): 1.5 LA A2 area: 20.8 cm2 RA long axis: 4.3 cm LA A4 area: 16.5 cm2 RA area: 16.6 cm2 LA length (vol): 5.3 cm RA vol: 54.5 ml LA vol: 54.8 ml RA : 22.6 ml/m2 LA vol index: 22.7 ml/m2 IVC diam: 1.5 cm RVD1 (basal): 4.4 cm TAPSE: 2.5 cm Doppler Measurements & Calculations Ao V2 max: 398.3 cm/sec LVOT Max Bar: 88.5 cm/sec Ao V2 mean: 283.5 cm/sec LV V1 max P.1 mmHg Ao max P.9 mmHg LV V1 VTI: 21.8 cm Ao mean P.6 mmHg ZIYAD(I,D): 0.65 cm2 Ao V2 VTI: 101.7 cm ZIYAD(V,D): 0.67 cm2 sev ratio: 0.21 ZIYAD indexed to BSA (cm^2/m^2): 0.27 MV E max bar: 100.4 cm/sec PA V2 max: 101.2 cm/sec MV A max bar: 74.3 cm/sec PA V2 mean: 67.9 cm/sec MV E/A: 1.4 PA mean P.1 mmHg Med Peak E' Bar: 7.2 cm/sec PA pr(Accel): 31.5 mmHg E/E' med: 14.0 Lat Peak E' Bar: 10.6 cm/sec E/E' lat: 9.5 E/e' average: 11.7 MV dec time: 0.22 sec MVA(VTI): 1.5 cm2 MV V2 mean: 74.4 cm/sec SV(LVOT): 65.7 ml MV mean P.5 mmHg MV V2 VTI: 44.4 cm Reading Physician:01:05 PM
== END ==
PROVIDERS: Family Provider Family Medicine; PCP Family Medicine; Referring Provider Internal Medicine Cardiovascular Disease; Visit Provider Internal Medicine Cardiovascular Disease
DX: I08.0 Rheumatic disorders of both mitral and aortic valves (principal)
CPT/HCPCS: C8929; Q9957

== ENCOUNTER → 2025-02-19 14:52 | Outpatient (CLI) | payer OTHER, SELFPAY ==
--- NOTE | 2025-02-19 14:53 | DI.ECHO.S_ITS ---
[place] +---------+ Hospital : : [address] : [address] [address] : : [id number] : : Phone: [phone] Echocardiogram Report + + :Name: ADRIANA LÓPEZ Study Date: 02/19/2025 Height: 69 in : :[facility] ReadingLocation: Weight: 290 lb : : Gender: Female BSA: 2.4 m2 : :: 1965 Age: 59 yrs BP: 128/80 mmHg: :Reason For Study: S/P AORTIC VALVE REPLACEMENT : :Ordering Physician: : :LAURE FUENTES Performed By: Eliot Harding : :Referring: LAURE FUENTES : + + Interpretation Summary Left ventricular wall thickness is mildly increased. The ejection fraction is estimated to be 60-65%. Diastolic function is indeterminate. The right ventricle is not well visualized. There is a well-seated, normal functioning bioprosthetic aortic valve. Pulmonary artery pressures cannot be estimated because of the lack of a measurable TR jet velocity. Compared to prior study 10/01/2024, the aortic valve has now been replaced. Procedure: A two-dimensional transthoracic echocardiogram with color flow and Doppler was performed. A contrast injection of Definity was performed to improve assessment of LV function. The study quality was technically difficult. Comparison is made with the echocardiogram of 10/01/2024. The patient was in normal sinus rhythm during the exam. Left Ventricle: The left ventricle is normal in size. Left ventricular wall thickness is mildly increased. There is no ventricular septal defect visualized. The ejection fraction is estimated to be 60-65%. Diastolic function is indeterminate. Right Ventricle: The right ventricle is not well visualized. Atria: The left atrial size is normal. Right atrium not well visualized secondary to technical limitations. There is no Doppler evidence for an interatrial shunt. Mitral Valve: The mitral valve is grossly normal. There is no mitral regurgitation noted. Aortic Valve: There is a bioprosthetic aortic valve. 25 mm Inspiris Resilia. The peak aortic velocity is 2.3 m/sec. The aortic valve mean gradient is 13.2 mmHg. No aortic regurgitation is present. Tricuspid Valve: The tricuspid valve is not well visualized. No tricuspid regurgitation. Pulmonary artery pressures cannot be estimated because of the lack of a measurable TR jet velocity. Pulmonic Valve: The pulmonic valve is not well visualized. There is no pulmonic valvular regurgitation. Great Vessels: The aortic root is normal size. The ascending aorta could not be visualized. The pulmonary is not well visualized. The IVC is of normal diameter and collapses greater than 50% with a sniff. This suggests a low right atrial pressure of 3 mm Hg. Pericardium/ Pleura There is no pericardial effusion. MMode/2D Measurements & Calculations LVIDd: 4.9 cm LVOT diam: 1.6 cm LVIDs: 3.3 cm Ao root diam: 3.5 cm FS: 33.0 % EPSS: 0.54 cm IVSd: 1.3 cm LVPWd: 1.5 cm LV galvin. diameter/BSA (cm/m^2): 2.0 LV sys. diameter/BSA (cm/m^2): 1.3 LA A2 area: 20.1 cm2 IVC diam: 1.6 cm LA A4 area: 23.3 cm2 LA length (vol): 5.9 cm LA vol: 67.0 ml LA vol index: 27.7 ml/m2 Doppler Measurements & Calculations Ao V2 max: 230.4 cm/sec LVOT Max Bar: 120.2 cm/sec Ao V2 mean: 173.4 cm/sec LV V1 max P.8 mmHg Ao max P.2 mmHg LV V1 VTI: 23.7 cm Ao mean P.2 mmHg ZIYAD(I,D): 1.1 cm2 Ao V2 VTI: 45.5 cm ZIYAD(V,D): 1.1 cm2 sev ratio: 0.52 ZIYAD indexed to BSA (cm^2/m^2): 0.44 MV E max bar: 90.7 cm/sec PA V2 max: 111.0 cm/sec Med Peak E' Bar: 7.9 cm/sec PA V2 mean: 85.7 cm/sec E/E' med: 11.5 PA mean P.1 mmHg Lat Peak E' Bar: 9.0 cm/sec PA pr(Accel): 34.5 mmHg E/E' lat: 10.1 E/e' average: 10.8 MV dec time: 0.20 sec SV(LVOT): 48.4 ml Reading Physician:05:03 PM
== END ==
LOC: ECHO 14:53
PROVIDERS: Family Provider Family Medicine; PCP Family Medicine; Referring Provider Family Medicine; Visit Provider Internal Medicine Cardiovascular Disease
DX: I35.0 Nonrheumatic aortic (valve) stenosis (principal); Z95.2 Presence of prosthetic heart valve
CPT/HCPCS: C8929; Q9957